=== PATIENT | male | born 1955 ===

== ENCOUNTER 2017-07-28 09:49 | Outpatient (CLI) | payer OTHER ==
[2017-07-28 10:55] LABS: BASOPHILS % (AUTO) 0.5 % (0.0-2.0); EOSINOPHILS # (AUTO) 0.1 K/uL (0.0-0.7); EOSINOPHILS % (AUTO) 1.6 % (0.0-7.0); HEMATOCRIT 44.1 % (36.7-47.1); LYMPHOCYTES % (AUTO) 26.6 % (20.5-51.5); MEAN CORPUSCULAR HEMOGLOBIN 30.3 uug (23.8-33.4); MEAN CORPUSCULAR HGB CONC 34 g/dL (32.5-36.3); MEAN CORPUSCULAR VOLUME 89.1 fL (73.0-96.2); MONOCYTES # (AUTO) 0.4 K/uL (2.0-10.0); MONOCYTES % (AUTO) 5.6 % (0.0-11.0); NEUTROPHILS % (AUTO) 65.7 % (38.5-71.5); PLATELET COUNT (AUTO) 185 K/uL (152-348); RED BLOOD CELL COUNT(AUTO) 4.95 MIL/uL (4.06-5.63); WHITE BLOOD COUNT (AUTO) 7.6 K/uL (3.6-10.2)
[2017-07-28 10:56] LABS: *BILIRUBIN,URIN NEGATIVE (NEGATIVE); *BLOOD, URINE 1+ (NEGATIVE); *CLARITY,URINE CLEAR (CLEAR); *COLOR,URINE YELLOW (YELLOW); *KETONES,URINE NEGATIVE (NEGATIVE); *PROTEIN,URINE 2+ (NEGATIVE); *UROBILINOGEN,URINE 0.2 E.U./dl (NORMAL); LEUKOCYTE ESTERASE ,URINE NEGATIVE (NEGATIVE); NITRITE, URINE NEGATIVE (NEGATIVE); PH,URINE 5.5 (5.0-8.0); UGLUCOSE NEGATIVE (NEGATIVE)
[2017-07-28 11:00] LABS: POTASSIUM 4.1 mmol/L (3.5-5.1)
[2017-07-28 11:06] LABS: BILIRUBIN,TOTAL 0.5 mg/dL (0.2-1.0); TOTAL PROTEIN, SERUM 7.4 g/dL (6.4-8.2)
[2017-07-28 11:37] LABS: BACTERIA,URINE NONE SEEN /HPF (NONE SEEN); RBC,URINE 0-3 /HPF (0-3); SQUAMOUS EPITHELIAL CELL,UR FEW /HPF (NONE SEEN); WBC,URINE 0-3 /HPF (0-3)
== END 2017-07-28 23:59 | disposition home or self-care (01) ==
LOC: LAB 09:49
PROVIDERS: ATTEND Internal Medicine
DX: Z01.818 Encounter for other preprocedural examination (principal); M75.122 Complete rotator cuff tear or rupture of left shoulder, not specified as traumatic
CPT/HCPCS: 36415; 71045; 85025; 85730; 93005; A4663

== ENCOUNTER 2017-07-31 08:00 | Day surgery (SDC) | payer OTHER ==
[2017-07-31] MEDS ORDERED: EPHEDRINE SULFATE 50 MG/ML AMPUL MC ONE (08:01)
[2017-07-31] MEDS ORDERED: DEXAMETHASONE SOD PHOSPHATE 4 MG INJ IV ONE (08:01)
[2017-07-31] MEDS ORDERED: PROPOFOL 200 MG/20 ML BOTTLE IV ONE (08:01)
[2017-07-31] MEDS ORDERED: ONDANSETRON 4 MG/2 ML VIAL IV ONE (08:01)
[2017-07-31] MEDS ORDERED: DESFLURANE ANESTHESIA GAS 240 ML BOTTLE IH ONE (08:01)
[2017-07-31] MEDS ORDERED: NEOSTIGMINE METHYLSULFATE 10 MG/10 ML VIAL IV ONE (08:01)
[2017-07-31] MEDS ORDERED: CEFAZOLIN 1 G VIAL MC ONE (08:01)
[2017-07-31] MEDS ORDERED: LIDOCAINE HCL 2% 20 ML VIAL MC ONE (08:01)
[2017-07-31] MEDS ORDERED: GLYCOPYRROLATE 0.2 MG/ML VIAL MC ONE (08:01)
[2017-07-31] MEDS ORDERED: KETOROLAC TROMETHAMINE 30 MG INJ IM ONE (08:01)
[2017-07-31] MEDS ORDERED: POLYMYXIN B SULFATE 500,000 UNITS, BACITRACIN 50,000 UNITS, NORMAL SALINE 20 ML MC ONE ×3 (08:45)
[2017-07-31] MEDS ORDERED: BUPIVACAINE PF 0.5% 30 ML VIAL ONE (08:46)
[2017-07-31] MEDS ORDERED: ROCURONIUM BROMIDE 50 MG/5 ML VIAL ONE ×2 (10:09→11:33)
[2017-07-31] MEDS ORDERED: FENTANYL CITRATE 100 MCG/2 ML AMPUL ONE (12:26)
[2017-07-31] MEDS ORDERED: ONDANSETRON 4 MG/2 ML VIAL ONE (12:48)
== END 2017-07-31 13:58 | disposition home or self-care (01) ==
LOC: DS 08:00
PROVIDERS: ATTEND Orthopaedic Surgery
DX: M75.102 Unspecified rotator cuff tear or rupture of left shoulder, not specified as traumatic (principal); M75.42 Impingement syndrome of left shoulder; M19.012 Primary osteoarthritis, left shoulder; I10 Essential (primary) hypertension; E11.9 Type 2 diabetes mellitus without complications; Z98.890 Other specified postprocedural states; Z79.84 Long term (current) use of oral hypoglycemic drugs; Z79.899 Other long term (current) drug therapy; Z83.3 Family history of diabetes mellitus; I21.3 ST elevation (STEMI) myocardial infarction of unspecified site
CPT/HCPCS: 23120; 23130; 23412; 82962 ×2; A4649; J0690; J1100; J1885; J2405 ×2; J2710; J3010; J3490 ×9; J7030; A4565; C1713

== ENCOUNTER 2018-01-12 10:32 | Outpatient (CLI) | payer OTHER ==
[2018-01-12 11:21] LABS: BASOPHILS # (AUTO) 0.1 K/uL (0.0-8.0); BASOPHILS % (AUTO) 0.8 % (0.0-2.0); EOSINOPHILS # (AUTO) 0.1 K/uL (0.0-0.7); EOSINOPHILS % (AUTO) 1.3 % (0.0-7.0); HEMATOCRIT 44.5 % (36.7-47.1); HEMOGLOBIN 15.1 g/dL (12.5-16.3); MEAN CORPUSCULAR HGB CONC 34 g/dL (32.5-36.3); MEAN CORPUSCULAR VOLUME 91.4 fL (73.0-96.2); MONOCYTES # (AUTO) 0.5 K/uL (2.0-10.0); MONOCYTES % (AUTO) 5.6 % (0.0-11.0); NEUTROPHILS # (AUTO) 6.5 K/uL (1.8-8.9); NEUTROPHILS % (AUTO) 70.3 % (38.5-71.5); PLATELET COUNT (AUTO) 206 K/uL (152-348); RED BLOOD CELL COUNT(AUTO) 4.87 MIL/uL (4.06-5.63); WHITE BLOOD COUNT (AUTO) 9.2 K/uL (3.6-10.2)
[2018-01-12 11:22] LABS: *BILIRUBIN,URIN NEGATIVE (NEGATIVE); *BLOOD, URINE NEGATIVE (NEGATIVE); *CLARITY,URINE CLEAR (CLEAR); *COLOR,URINE YELLOW (YELLOW); *KETONES,URINE NEGATIVE (NEGATIVE); *PROTEIN,URINE NEGATIVE (NEGATIVE); *UROBILINOGEN,URINE 0.2 E.U./dl (NORMAL); LEUKOCYTE ESTERASE ,URINE NEGATIVE (NEGATIVE); NITRITE, URINE NEGATIVE (NEGATIVE); PH,URINE 5.5 (5.0-8.0); UGLUCOSE NEGATIVE (NEGATIVE)
[2018-01-12 11:34] LABS: BACTERIA,URINE FEW /HPF (NONE SEEN); RBC,URINE 0-3 /HPF (0-3); SQUAMOUS EPITHELIAL CELL,UR FEW /HPF (NONE SEEN); WBC,URINE 0-3 /HPF (0-3)
[2018-01-12 11:35] LABS: CREATININE 0.9 mg/dL (0.6-1.3); POTASSIUM 4.4 mmol/L (3.5-5.1)
[2018-01-12 11:40] LABS: BILIRUBIN,TOTAL 0.6 mg/dL (0.2-1.0); TOTAL PROTEIN, SERUM 7.7 g/dL (6.4-8.2)
== END 2018-01-12 23:59 | disposition home or self-care (01) ==
LOC: DS 10:32
PROVIDERS: ATTEND Internal Medicine
DX: Z01.818 Encounter for other preprocedural examination (principal); M75.101 Unspecified rotator cuff tear or rupture of right shoulder, not specified as traumatic; I44.7 Left bundle-branch block, unspecified; I70.0 Atherosclerosis of aorta
CPT/HCPCS: 36415; 71045; 85025; 85730; 93005; A4663

== ENCOUNTER 2018-01-15 06:12 | Day surgery (SDC) | payer OTHER ==
[2018-01-15] MEDS ORDERED: CEFAZOLIN 1 G VIAL IV ONE (06:13)
[2018-01-15] MEDS ORDERED: NEOSTIGMINE METHYLSULFATE 10 MG/10 ML VIAL IV ONE (06:13)
[2018-01-15] MEDS ORDERED: PROPOFOL 200 MG/20 ML BOTTLE IV ONE (06:13)
[2018-01-15] MEDS ORDERED: KETOROLAC TROMETHAMINE 30 MG INJ IM ONE (06:13)
[2018-01-15] MEDS ORDERED: DESFLURANE ANESTHESIA GAS 240 ML BOTTLE IH ONE (06:13)
[2018-01-15] MEDS ORDERED: ONDANSETRON 4 MG/2 ML VIAL IV ONE (06:13)
[2018-01-15] MEDS ORDERED: GLYCOPYRROLATE 0.2 MG/ML VIAL MC ONE (06:13)
[2018-01-15] MEDS ORDERED: EPHEDRINE SULFATE 50 MG/ML AMPUL IV ONE (06:13)
[2018-01-15] MEDS ORDERED: DEXAMETHASONE SOD PHOSPHATE 4 MG INJ IV ONE (06:13)
[2018-01-15] MEDS ORDERED: LIDOCAINE HCL 2% 20 ML VIAL MC ONE (06:13)
[2018-01-15] MEDS ORDERED: DEXTROSE 50% 50 ML DISP.SYRIN ONE (06:45)
[2018-01-15] MEDS ORDERED: POLYMYXIN B SULFATE 500,000 UNITS, BACITRACIN 50,000 UNITS, NORMAL SALINE 20 ML MC ONE ×3 (07:15)
[2018-01-15] MEDS ORDERED: ROCURONIUM BROMIDE 50 MG/5 ML VIAL ONE (07:31)
[2018-01-15] MEDS ORDERED: HYDROMORPHONE 2 MG/1 ML DISP.SYRIN ONE (07:31)
[2018-01-15] MEDS ORDERED: BUPIVACAINE PF 0.5% 30 ML VIAL ONE (08:07)
[2018-01-15] MEDS ORDERED: FENTANYL CITRATE 100 MCG/2 ML AMPUL ONE (10:26)
[2018-01-15] MEDS ORDERED: HYDROCODONE/APAP 5-325MG TABLET ONE (12:36)
== END 2018-01-15 12:45 | disposition home or self-care (01) ==
LOC: DS 06:12
PROVIDERS: ATTEND Orthopaedic Surgery
DX: M75.101 Unspecified rotator cuff tear or rupture of right shoulder, not specified as traumatic (principal); M13.811 Other specified arthritis, right shoulder; I10 Essential (primary) hypertension; E11.9 Type 2 diabetes mellitus without complications
CPT/HCPCS: A4565; A4649; C1713; J0690; J1100; J1170; J1885; J2405; J2710; J3010; J3490; J7030